=== PATIENT | female | born 1935 | race Caucasian/White ===

== ENCOUNTER 2017-02-14 07:33 | Emergency (ER) | payer OTHER ==
[~2017-02-14] VITALS: Ht 162.6 cm; Wt 74.8 kg
[2017-02-14 07:33] VITALS: BP_SYST 153
[2017-02-14 08:22] VITALS: BP_SYST 148
== END 2017-02-14 08:22 | disposition home or self-care (01) ==
LOC: SED 07:33
DX: R32 Unspecified urinary incontinence (principal); Z88.8 Allergy status to other drugs, medicaments and biological substances
CPT/HCPCS: 99281

== ENCOUNTER 2020-02-09 01:41 | Emergency (ER) | payer OTHER ==
[~2020-02-09] VITALS: Ht 162.6 cm; Wt 72.6 kg
[2020-02-09 01:45] VITALS: BP_SYST 160
--- NOTE | 2020-02-09 02:45 | NUR ---
Patient to [facility] pang for evaluation. Side rails up.
--- NOTE | 2020-02-09 02:47 | NUR ---
ER at bedside examining patient.
--- NOTE | 2020-02-09 02:50 | NUR ---
Pt BIB daughter to ER for unwitnessed fall x 1 hour ago. Pt is AXOX3. Pt has a hematoma to the back of the head. Denies blurry vision, LOC, N/V, SOB, CP.
--- NOTE | 2020-02-09 03:01 | NUR ---
Report given to Donovan BARRON/Mari BARRON.
[2020-02-09 03:26] LABS: BASOPHILS % (AUTO) 0.4 % (0.0-2.0); EOSINOPHILS # (AUTO) 0.1 K/uL (0.0-0.4); EOSINOPHILS % (AUTO) 0.6 % (0.0-4.0); HEMATOCRIT 40.9 % (36-48); LYMPHOCYTES % (AUTO) 10.6 % (20.5-51.5); MEAN CORPUSCULAR HEMOGLOBIN 31 pg (27-31); MEAN CORPUSCULAR HGB CONC 34 % (32-36); MEAN CORPUSCULAR VOLUME 91 fL (79.0-98.0); MONOCYTES # (AUTO) 0.6 K/uL (0.0-1.0); MONOCYTES % (AUTO) 6.1 % (1.7-9.3); NEUTROPHILS # (AUTO) 7.5 K/uL (1.8-7.7); NEUTROPHILS % (AUTO) 82.3 % (40.0-70.0); PLATELET COUNT (AUTO) 206 K/uL (130-430); RED BLOOD CELL COUNT(AUTO) 4.51 MIL/uL (4.2-6.2); RED CELL DISTRIBUTION WIDTH 14.5 % (9.0-15.0); WHITE BLOOD COUNT (AUTO) 9.1 K/uL (4.8-10.8)
--- NOTE | 2020-02-09 03:36 | NUR ---
ASSISTED PT TO THE RESTROOM.
[2020-02-09 03:39] LABS: ANION GAP 6 (5-15); CALCIUM 9.9 mg/dL (8.4-11.0); CHLORIDE 91 mmol/L (98-107); CREATININE 0.58 mg/dL (0.55-1.30); GLUCOSE 176 mg/dL (70-99); POTASSIUM 3.6 mmol/L (3.5-5.1); SODIUM SERUM 123 mmol/L (136-145); UREA NITROGEN, BLOOD 17 mg/dL (8-21)
[2020-02-09 03:43] LABS: ALANINE AMINOTRANSFERASE 28 U/L (12-78); ALBUMIN 4.6 g/dL (3.4-4.8); ASPARTATE AMINOTRANSFERASE 23 U/L (10-37); TOTAL BILIRUBIN 0.6 mg/dL (0.0-1.0)
--- NOTE | 2020-02-09 04:29 | NUR ---
Pt moved to er bed 3.
[2020-02-09 04:30] LABS: INR 4.7 (0.8-1.2); PROTHROMBIN TIME 46.4 SECS (9.5-12.5)
--- NOTE | 2020-02-09 05:00 | NUR ---
Pt placed in bed 3, daughter at bed side, AxOx3, pt used bed lopez at bed.
[2020-02-09 05:30] LABS: BILIRUBIN,URINE NEGATIVE (NEGATIVE); CLARITY/URINE SL CLOUDY (CLEAR); COLOR,URINE YELLOW (YELLOW); GLUCOSE,URINE NEGATIVE (NEGATIVE); KETONES,URINE NEGATIVE (NEGATIVE); LEUKOCYTE ESTERASE ,URINE 1+ (NEGATIVE); NITRITE, URINE NEGATIVE (NEGATIVE); PH,URINE 7.5 (5.0-8.0); PROTEIN URINE 1+ (NEGATIVE); UROBILINOGEN,URINE 0.2 (0.2-1.0)
[2020-02-09 05:35] LABS: BLOOD, URINE TRACE (NEGATIVE)
[2020-02-09 05:37] LABS: BACTERIA,URINE MODERATE /HPF (None Seen)
[2020-02-09] MEDS ORDERED: LEVOFLOXACIN 500 MG TABLET PO ONE (05:45)
[2020-02-09 06:30] VITALS: BP_SYST 160
--- NOTE | 2020-02-09 06:30 | NUR ---
Patient given written and verbal discharge instructions and verbalizes understanding. ER MD discussed with patient the results and treatment provided. Patient in stable condition. ID arm band removed. Rx of macrobid given. Patient educated on pain management and to follow up with PMD. Opportunity for questions provided and answered. Medication side effect fact sheet provided.
== END 2020-02-09 06:30 | disposition home or self-care (01) ==
LOC: SED 01:41
DX: S00.03XA Contusion of scalp, initial encounter (principal); N39.0 Urinary tract infection, site not specified; I48.91 Unspecified atrial fibrillation; Z90.49 Acquired absence of other specified parts of digestive tract; Z90.710 Acquired absence of both cervix and uterus; Z88.8 Allergy status to other drugs, medicaments and biological substances; W18.09XA Striking against other object with subsequent fall, initial encounter; Y93.89 Activity, other specified; Y92.091 Bathroom in other non-institutional residence as the place of occurrence of the external cause; Y99.8 Other external cause status
CPT/HCPCS: 36415; 70450-TC; 71045; 72125-TC; 80053; 81000-TC; 83880; 84484; 85025; 85379; 85610-TC; 85730-TC; 87086; 87186-TC; 93005; 99285

== ENCOUNTER 2022-10-30 12:20 | Inpatient (IN) | payer OTHER ==
[~2022-10-30] VITALS: Ht 162.6 cm; Wt 68.0 kg
--- NOTE | 2022-10-30 12:58 | NUR ---
PT TO BED 3, TO GOWN AND MONITOR
--- NOTE | 2022-10-30 13:00 | NUR ---
PT BIB DAUGHTER AWAKE AND ALERT AOX4, NO SOB OR DISTRESS. PT C/O PAIN TO UPPER RIGHT LEG. PT HAS BRUSING TO R INNER THIGH. PT HAS HX OF COUMADINE MEDICATION. PT STATES PAIN 02/21. PT DENIES N/V.
--- NOTE | 2022-10-30 13:05 | NUR ---
MD DR FRANCISCO AT BEDSIDE
[2022-10-30 14:18] LABS: BASOPHILS % (AUTO) 0.4 % (0.0-2.0); EOSINOPHILS % (AUTO) 0.4 % (0.0-4.0); HEMATOCRIT 33.1 % (36-48); HEMOGLOBIN 11.1 g/dL (12.0-16.0); LYMPHOCYTES # (AUTO) 0.8 K/uL (1.0-5.5); LYMPHOCYTES % (AUTO) 8.3 % (20.5-51.5); MEAN CORPUSCULAR HEMOGLOBIN 30 pg (27-31); MEAN CORPUSCULAR HGB CONC 34 % (32-36); MEAN CORPUSCULAR VOLUME 90 fL (79.0-98.0); MONOCYTES # (AUTO) 0.7 K/uL (0.0-1.0); MONOCYTES % (AUTO) 7.5 % (1.7-9.3); NEUTROPHILS # (AUTO) 7.9 K/uL (1.8-7.7); NEUTROPHILS % (AUTO) 83.4 % (40.0-70.0); PLATELET COUNT (AUTO) 102 K/uL (130-430); RED BLOOD CELL COUNT(AUTO) 3.66 MIL/uL (4.2-6.2); RED CELL DISTRIBUTION WIDTH 14.7 % (9.0-15.0); WHITE BLOOD COUNT (AUTO) 9.4 K/uL (4.8-10.8)
[2022-10-30 14:32] LABS: PROTHROMBIN TIME 28.9 SECS (9.5-12.5)
[2022-10-30 15:06] LABS: ALANINE AMINOTRANSFERASE 26 U/L (12-78); ALBUMIN 3.4 g/dL (3.4-4.8); ANION GAP 13 (5-15); ASPARTATE AMINOTRANSFERASE 32 U/L (10-37); CHLORIDE 93 mmol/L (98-107); CREATININE 0.72 mg/dL (0.55-1.30); GLUCOSE 224 mg/dL (70-99); TOTAL BILIRUBIN 0.9 mg/dL (0.0-1.0); UREA NITROGEN, BLOOD 20 mg/dL (8-21)
[2022-10-30] MEDS ORDERED: WARF4TAB72 PO (15:22)
[2022-10-30] MEDS ORDERED: METF-379 PO (15:22)
[2022-10-30] MEDS ORDERED: METO50TA7 PO (15:22)
[2022-10-30] MEDS ORDERED: TELM80TA2 PO (15:22)
[2022-10-30] MEDS ORDERED: GLIM2TAB PO (15:22)
[2022-10-30] MEDS ORDERED: HYDR25TA4 PO (15:22)
[2022-10-30] MEDS ORDERED: AMLO5TAB4 PO (15:23)
--- NOTE | 2022-10-30 15:59 | NUR ---
Admit bed requested Patient will be admitted to care of Dr. SAENZ. Admitted to MED SURGE unit. Diagnosis LOWER RIGHT EXTREMITY DVT Inpatient (Yes or No) YES Observation (Yes or No) NO Orientation concerns or request close to nursing station (Yes or No) NO Covid Status PENDING On vent or bipap NO Isolation requirements NO Needs a sitter NO From Home (Yes or if No enter name of facility) HOME Requires Dialysis (Yes or No) NO Med Rec Completed (Yes of No) YES
--- NOTE | 2022-10-30 18:00 | NUR ---
Patient will be admitted to care of DR SAENZ . Admitted to MED SURGE unit. Will go to room 132C. Belongings list completed. Complete and up to date summary report printed. SBAR report to be given at bedside with opportunity for questions.
--- NOTE | 2022-10-30 18:19 | NUR ---
ADMISSION NOTE Received patient from ER via gurney. Patient admitted with diagnosis of Right lower extremity DVT. Patient is awake, alert, oriented X4. Patient oriented to hospital room, call light, toileting, pain management and safety-teach back done. Patient informed that I will be her nurse and that their room number is 132C. Call light within reach.
[2022-10-30 18:20] VITALS: BP_SYST 153
--- NOTE | 2022-10-30 19:30 | NUR ---
End of Shift: Patients daughter requested, per ER Nurse Cheo, to have a clinical social work aide come to see patient. Patient in stable condition, bed in lowest position, call light within reach.
--- NOTE | 2022-10-30 19:51 | NUR ---
CONSULTATION PAGED/CALLED Reason for Consultation: DVT Person Who was Notified: GUEVARA Consulting Physician: FELIBERTO GAVIN RADIO EQUIPMENT INSTALLER FOR DR. MCDUFFIE Concrete Mixer Truck Driver Specialty: CORRECTION OFFICER [place] [employer] Ordering Physician:
[2022-10-30] MEDS ORDERED: APIXABAN 2.5 MG TABLET PO SCH ×2 (21:00)
[2022-10-30 22:06] VITALS: BP_SYST 144
--- NOTE | 2022-10-31 02:17 | NUR ---
pt resting in bed, repositioned every 2 hr. awaiting return call from Dr. Brown for medication reconciliation
[2022-10-31] MEDS ORDERED: *LOVENOX 1MG/KG Q12H/PHARMACY XX ONE (09:00)
[2022-10-31 11:03] LABS: INR 2.7 (0.8-1.2); PROTHROMBIN TIME 25.9 SECS (9.5-12.5)
[2022-10-31 11:40] VITALS: BP_SYST 139
[2022-10-31] MEDS: ENOXAPARIN SODIUM 80 MG/0.8 ML SYRINGE SUBCUT SCH ×2 (12:00→23:48)
[2022-10-31] MEDS ORDERED: ONDANSETRON HCL 4 MG/2 ML VIAL IVP PRN (15:00)
[2022-10-31] MEDS ORDERED: HYDROcodone/ACETAMIN 10-325 MG TAB PO PRN (15:00)
[2022-10-31] MEDS ORDERED: HYDROCHLOROTHIAZIDE 25 MG TABLET (HCTZ) PO ONE (15:00)
[2022-10-31] MEDS ORDERED: LORazepam 2 MG/ML VIAL IVP PRN (15:00)
[2022-10-31] MEDS ORDERED: NALOXONE HCL 0.4 MG/ML AMP (NARCAN) IVP PRN ×2 (15:00)
[2022-10-31] MEDS ORDERED: ACETAMINOPHEN 325 MG TABLET PO PRN ×2 (15:00→15:15)
[2022-10-31] MEDS ORDERED: TELMISARTAN 80 MG TABLET PO SCH (15:00)
[2022-10-31] MEDS ORDERED: GLIMEPIRIDE 2 MG TABLET PO ONE (15:30)
[2022-10-31] MEDS ORDERED: LOSARTAN POTASSIUM 50 MG TABLET (COZAAR) PO ONE (15:45)
[2022-10-31 17:17] VITALS: BP_SYST 136
[2022-10-31] MEDS: INSULIN REGULAR, HUMAN 100 UNITS/ML, 3 ML VIAL (humuLIN R) SUBCUT PRN ×2 (18:35→22:24)
--- NOTE | 2022-10-31 19:57 | NUR ---
RECEIVED PT LYING IN BED, NO DISTRESS NOTED, DENIES PAIN. AAOX3, LUNG SOUNDS DIMINISHED O2 SAT 100% ON RA. BRUISING NOTED TO BUE. IV TO RUE SITE CDI. EDMA NOTED TO BLE. WARMTH AND REDNESS NOTED TO LLE. BLE ELEVATED ON TO PILLOW.
[2022-10-31 20:00] VITALS: BP_SYST 137
[2022-10-31] MEDS: metFORMIN HCL 500 MG TABLET PO SCH (22:09)
[2022-10-31] MEDS: NORMAL SALINE 5 ML DISP.SYRIN IVF SCH (22:10)
[2022-10-31] MEDS: METOPROLOL SUCCINATE 50 MG TAB.SR.24H (TOPROL XL) PO SCH (22:13)
[2022-10-31] MEDS: amLODIPine BESYLATE 5 MG TABLET PO SCH (22:14)
[2022-10-31] MEDS: HYDROcodone/ACETAMIN 5-325 MG TAB (NORCO/ VICODIN) PO PRN (23:51)
[2022-11-01 04:21] VITALS: BP_SYST 116
[2022-11-01] MEDS: HYDROcodone/ACETAMIN 5-325 MG TAB (NORCO/ VICODIN) PO PRN ×3 (04:42→15:44)
[2022-11-01] MEDS: GLIMEPIRIDE 2 MG TABLET PO SCH (06:41)
[2022-11-01] MEDS: NORMAL SALINE 5 ML DISP.SYRIN IVF SCH ×3 (06:42→21:25)
[2022-11-01 07:05] LABS: INR 2.6 (0.8-1.2); PROTHROMBIN TIME 25.3 SECS (9.5-12.5)
[2022-11-01 07:24] LABS: ALANINE AMINOTRANSFERASE 20 U/L (12-78); ALBUMIN 2.8 g/dL (3.4-4.8); ANION GAP 8 (5-15); ASPARTATE AMINOTRANSFERASE 21 U/L (10-37); CALCIUM 8.4 mg/dL (8.4-11.0); CHLORIDE 96 mmol/L (98-107); CREATININE 0.71 mg/dL (0.55-1.30); GLUCOSE 131 mg/dL (70-99); PHOSPHORUS 3.1 mg/dL (2.7-4.5); UREA NITROGEN, BLOOD 18 mg/dL (8-21)
[2022-11-01 07:56] LABS: BASOPHILS % (AUTO) 0.4 % (0.0-2.0); EOSINOPHILS # (AUTO) 0.1 K/uL (0.0-0.4); EOSINOPHILS % (AUTO) 1.1 % (0.0-4.0); HEMATOCRIT 31.7 % (36-48); HEMOGLOBIN 10.7 g/dL (12.0-16.0); LYMPHOCYTES # (AUTO) 0.8 K/uL (1.0-5.5); LYMPHOCYTES % (AUTO) 7.9 % (20.5-51.5); MEAN CORPUSCULAR HEMOGLOBIN 31 pg (27-31); MEAN CORPUSCULAR HGB CONC 34 % (32-36); MEAN CORPUSCULAR VOLUME 90 fL (79.0-98.0); MONOCYTES % (AUTO) 10.3 % (1.7-9.3); NEUTROPHILS # (AUTO) 8.1 K/uL (1.8-7.7); NEUTROPHILS % (AUTO) 80.3 % (40.0-70.0); RED BLOOD CELL COUNT(AUTO) 3.52 MIL/uL (4.2-6.2); RED CELL DISTRIBUTION WIDTH 14.7 % (9.0-15.0)
[2022-11-01 08:06] LABS: FOLATE (FOLIC ACID) >20.0 ng/mL (>3.0)
[2022-11-01 08:49] VITALS: BP_SYST 114
[2022-11-01] MEDS ORDERED: HYDROCHLOROTHIAZIDE 25 MG TABLET (HCTZ) PO SCH (09:00)
[2022-11-01] MEDS: LOSARTAN POTASSIUM 50 MG TABLET (COZAAR) PO SCH (10:13)
[2022-11-01] MEDS: metFORMIN HCL 500 MG TABLET PO SCH ×2 (10:14→21:22)
[2022-11-01] MEDS: METOPROLOL SUCCINATE 50 MG TAB.SR.24H (TOPROL XL) PO SCH ×2 (10:14→21:24)
--- NOTE | 2022-11-01 11:30 | NUR ---
Laborer Drying Department re: renal social worker referral Telephone call made to the RN Sandy regarding the patient's renal social worker referral. Per nurse, she is unaware of any issues as to the patient. I advised her I would come in and see the patient and complete a social service assessment. The patient is an 87-year-old female who is alert and oriented. I completed an initial assessment with the patient at bedside. During my assessment, the patient states she resides in a single-story home with her son. The patient was using a FWW prior to her admission to the facility. The patient states she is not driving. She states she does not require assistance to her ADLs and has been independent with her bathing and dressing. The patient does have a Power of Monogram And Letter Paster, in which her daughter, Janel Jackson ([phone]) serves as her POA. Her PCP is Dr. Subramanian in [place]. The discharge plan is to return home with son. The patient was advised that prior to discharge, she will be assessed for appropriate services and needs. The patient is in agreement of the discharge plan. At time of discharge, the patient states her daughter will transport her home. I came back to the patient later in the day as the daughter had arrived and wanted to speak with me. I spoke with daughter to discuss caregiving options for the patient. We discussed home health services and the involvement that the patients medical group will hold. I explained in detail as to how home health works and what it is. The daughter was made aware the home health should not be considered as a form of in-home care, but as an entity that helps the patient reacclimate back to independent living. At the daughters request, information for private in-home care giving agencies were provided to the daughter for her review. The daughter states she is looking to hire some form of private caregiving services.
[2022-11-01 11:40] VITALS: BP_SYST 96
[2022-11-01] MEDS: ENOXAPARIN SODIUM 80 MG/0.8 ML SYRINGE SUBCUT SCH (11:48)
[2022-11-01] MEDS: INSULIN REGULAR, HUMAN 100 UNITS/ML, 3 ML VIAL (humuLIN R) SUBCUT PRN ×3 (11:48→21:30)
[2022-11-01 12:07] LABS: ANTI NUCLEAR AB WITH REFLEX Positive (Negative)
[2022-11-01 12:26] LABS: PLATELET COUNT (AUTO) 189 K/uL (130-430)
[2022-11-01 15:37] VITALS: BP_SYST 102; BP_SYST 98
[2022-11-01 20:00] VITALS: BP_SYST 104
--- NOTE | 2022-11-01 20:07 | NUR ---
RECEIVED PT LYING IN BED, NO DISTRESS NOTED, DENIES PAIN. AAOX4, O2 SAT 98% ON RA. IV TO RT HAND SITE CDI. EDENA ABD WEAK PULSES TO BLE. BLE ELEVATED ONTO PILLOWS.
[2022-11-01] MEDS: amLODIPine BESYLATE 5 MG TABLET PO SCH (21:00)
[2022-11-02 00:15] VITALS: BP_SYST 97
[2022-11-02] MEDS: ENOXAPARIN SODIUM 80 MG/0.8 ML SYRINGE SUBCUT SCH ×2 (00:26→11:47)
[2022-11-02] MEDS: GLIMEPIRIDE 2 MG TABLET PO SCH (06:12)
[2022-11-02] MEDS: NORMAL SALINE 5 ML DISP.SYRIN IVF SCH ×3 (06:14→22:50)
[2022-11-02 07:30] VITALS: BP_SYST 121
[2022-11-02 08:18] LABS: BASOPHILS % (AUTO) 0.4 % (0.0-2.0); EOSINOPHILS # (AUTO) 0.2 K/uL (0.0-0.4); EOSINOPHILS % (AUTO) 2.1 % (0.0-4.0); HEMATOCRIT 35.2 % (36-48); HEMOGLOBIN 11.8 g/dL (12.0-16.0); LYMPHOCYTES % (AUTO) 11.4 % (20.5-51.5); MEAN CORPUSCULAR HEMOGLOBIN 30 pg (27-31); MEAN CORPUSCULAR HGB CONC 34 % (32-36); MEAN CORPUSCULAR VOLUME 91 fL (79.0-98.0); MONOCYTES # (AUTO) 0.8 K/uL (0.0-1.0); MONOCYTES % (AUTO) 8.6 % (1.7-9.3); NEUTROPHILS # (AUTO) 7.1 K/uL (1.8-7.7); NEUTROPHILS % (AUTO) 77.5 % (40.0-70.0); PLATELET COUNT (AUTO) 145 K/uL (130-430); RED BLOOD CELL COUNT(AUTO) 3.88 MIL/uL (4.2-6.2); WHITE BLOOD COUNT (AUTO) 9.1 K/uL (4.8-10.8)
[2022-11-02] MEDS: metFORMIN HCL 500 MG TABLET PO SCH ×2 (08:22→22:45)
[2022-11-02] MEDS: HYDROcodone/ACETAMIN 5-325 MG TAB (NORCO/ VICODIN) PO PRN (08:22)
[2022-11-02] MEDS: METOPROLOL SUCCINATE 50 MG TAB.SR.24H (TOPROL XL) PO SCH ×2 (08:23→21:00)
[2022-11-02] MEDS: LOSARTAN POTASSIUM 50 MG TABLET (COZAAR) PO SCH (08:23)
[2022-11-02] MEDS ORDERED: APIX5TAB4 PO (11:43)
[2022-11-02] MEDS: INSULIN REGULAR, HUMAN 100 UNITS/ML, 3 ML VIAL (humuLIN R) SUBCUT PRN ×2 (11:49→22:44)
--- NOTE | 2022-11-02 11:58 | NUR ---
I have discussed discharge with the pt and her daughter. They are concerned about pt safety at home. Pt lives alone and was walking using a walker but daughter reports pt has been unsteady. Pt has been on BR here d/t DVT. Ne orders placed for PT/OT eval and message has been left with the PT unit to see pt ARIANNA. New order also placed for home health per daughter request.
[2022-11-02 12:15] VITALS: BP_SYST 96
[2022-11-02] MEDS ORDERED: MAGNESIUM SULFATE 50 ML IV ONE (12:30)
--- NOTE | 2022-11-02 15:38 | NUR ---
PT and OT has just completed evaluation and both recommending SNF. The daughter is at bedside and agreeable. Dr. Bhardwaj has been paged.
--- NOTE | 2022-11-02 15:49 | NUR ---
Pt. was cleared for OT eval. Pt. was alert and cooperative, Pt's daugter was present during eval. Pls see OT eval form in charr for more detail. Recommended SNF for continuation of care and Rehab PT/OT. Pt will be having OT tx QD 5x/wk while here in Acute care. Nursing and family notified.
[2022-11-02 16:00] VITALS: BP_SYST 81
[2022-11-02 16:42] VITALS: BP_SYST 102
[2022-11-03] MEDS: amLODIPine BESYLATE 5 MG TABLET PO SCH (00:15)
[2022-11-03] MEDS: ENOXAPARIN SODIUM 80 MG/0.8 ML SYRINGE SUBCUT SCH ×2 (00:16→12:29)
[2022-11-03 05:08] VITALS: BP_SYST 136
[2022-11-03] MEDS: INSULIN REGULAR, HUMAN 100 UNITS/ML, 3 ML VIAL (humuLIN R) SUBCUT PRN (07:03)
[2022-11-03] MEDS: NORMAL SALINE 5 ML DISP.SYRIN IVF SCH ×2 (07:05→14:56)
[2022-11-03] MEDS: GLIMEPIRIDE 2 MG TABLET PO SCH (07:09)
--- NOTE | 2022-11-03 07:27 | NUR ---
CLOSING NOTES PT IS RESTING
[2022-11-03 08:01] VITALS: BP_SYST 124
[2022-11-03] MEDS: metFORMIN HCL 500 MG TABLET PO SCH (08:44)
[2022-11-03] MEDS: LOSARTAN POTASSIUM 50 MG TABLET (COZAAR) PO SCH (08:45)
[2022-11-03 10:05] VITALS: BP_SYST 115
[2022-11-03] MEDS: METOPROLOL SUCCINATE 50 MG TAB.SR.24H (TOPROL XL) PO SCH (10:12)
[2022-11-03] MEDS: HYDROcodone/ACETAMIN 5-325 MG TAB (NORCO/ VICODIN) PO PRN (10:14)
[2022-11-03] MEDS ORDERED: DOCUSATE SODIUM 100 MG CAPSULE PO PRN (11:00)
[2022-11-03 13:10] VITALS: BP_SYST 115
--- NOTE | 2022-11-03 14:26 | NUR ---
Pt's last BM was 10/30/22 and pt reports discomfort, constipation. She has been provided colace and prune juice today without results. Family is requesting and enema prior to discharge. Dr. Bhardwaj has been paged.
--- NOTE | 2022-11-03 15:04 | NUR ---
D/C Patient Patient and daughter have been given medication reconciliation form and D/C instructions. Exit Care provided. Patient and daughter verbalized understanding. MD discussed with patient the results and treatment provided. Ambulatory with walker and assist. Patient in stable condition. Patient educated on pain management. The daughter has now left to get the pt clothing and to moss picker her new prescription. Currently still waiting on a return call from Dr. Bhardwaj.
--- NOTE | 2022-11-03 15:13 | NUR ---
Second page has been made to Dr. Bhardwaj for enema per family request.
--- NOTE | 2022-11-03 15:53 | NUR ---
PHYSICAL THERAPY CO-SIGN The Physical Therapy Progress Notes documented by Photovoltaic Installation Technician have been reviewed. Reviewed/Co-Signed by: Sajan Massey Documentation Done by:GAEL DOWNING Addendum: 11/03/22 at 1553 by Sajan Massey PT Amended: Links added.
--- NOTE | 2022-11-03 16:08 | NUR ---
I have received a call from [facility] CURTIS, and reported that the board and care has not officially accepted the pt because they are still requiring a physician report. He stated that he has left a message for Dr. Bhardwaj and requested that I also inform in house CM. I have left a voice message for Christa and requested a call back.
--- NOTE | 2022-11-03 16:49 | NUR ---
A second voicemail has been left for Christa about the physician's report request from the board and care. I have however received a call back from Dr. Dyer and new order will be placed for tap water enema per request. Daughter is back at bedside and has been updated.
--- NOTE | 2022-11-03 17:20 | NUR ---
Tap water enema provided. Stools are very hard. Pt is currently on bedpan attempting to have BM.
--- NOTE | 2022-11-03 18:36 | NUR ---
The tap water enema softened the stool but still required assistance with disimpaction manually. Pt has cleared with large stool. Daughter is at bedside and pt will discharge once she has finished eating dinner. She stated the board and care instructed her to still bring pt and they will continue to work on obtaining the physician report.
--- NOTE | 2022-11-03 19:07 | NUR ---
D/C Patient Patient and daughter given medication reconciliation form and D/C instructions. Exit Care provided. Patient and daughter verbalized understanding. MD discussed with patient the results and treatment provided. Pt able to transfer with assist for discharge to board and care. Patient in stable condition, ID band removed. IV catheter removed, intact and dressing applied, no active bleeding. Daughter has already collected new prescription. Patient educated on pain management. All belongings sent with patient. Pt was escorted to the front lobby by RNJazmine, to private vehicle. Pt stable at time of discharge.
[2022-11-03] MEDS ORDERED: APIXABAN 2.5 MG TABLET PO SCH (21:00)
== END 2022-11-03 21:12 | disposition home or self-care (01) | DRG 300 ==
LOC: SED 12:20 → SMU 15:24
PROVIDERS: ADMIT Internal Medicine; ATTEND Internal Medicine
DX: I82.431 Acute embolism and thrombosis of right popliteal vein (principal); E87.1 Hypo-osmolality and hyponatremia; I82.441 Acute embolism and thrombosis of right tibial vein; I10 Essential (primary) hypertension; E86.0 Dehydration; E11.65 Type 2 diabetes mellitus with hyperglycemia; I25.10 Atherosclerotic heart disease of native coronary artery without angina pectoris; D64.9 Anemia, unspecified; D69.6 Thrombocytopenia, unspecified; Z20.822 Contact with and (suspected) exposure to COVID-19; Z74.01 Bed confinement status; Z88.8 Allergy status to other drugs, medicaments and biological substances; Z79.84 Long term (current) use of oral hypoglycemic drugs; Z79.899 Other long term (current) drug therapy
CPT/HCPCS: 36415; 80053; 82607; 82746; 83735; 84100; 85025; 85610-TC; 85730-TC; 86022; 86038; 93971; 97110-GP; 97112-GP; 97116-GP; 97163-GP; 97530-GP; 99285; J1650; J1815; J3475